=== PATIENT | female | born 1965 | race Caucasian/White ===

== ENCOUNTER → 2017-11-03 | Outpatient (CLI) | payer BC ==
[~2017-11-03] MED LIST: ASPI81CH PO; Augmentin 875-1 EACH PO; BENTYL20 MG PO; ESOM20 PO; LEVSOD50 PO; LISHYD1012 PO; LISHYD2025 PO; LISINOPRIL PO; METF500 PO; METF850 PO; NITR100CA PO; Nexium40 MG PO; Unithroid25 MCG PO; Zofran Odt4 MG SL; [UNRECOGNIZED DRUG - OTHER] PO; [UNRECOGNIZED DRUG - REMARK]
== END | disposition home or self-care (01) ==
LOC: LAB 16:43
DX: N89.8 Other specified noninflammatory disorders of vagina (principal)
CPT/HCPCS: 87070; 87205

== ENCOUNTER → 2018-02-01 | Outpatient (CLI) | payer BC | END | disposition home or self-care (01) | LOC: OLS 17:33 → LAB SHORT 17:33 | DX: N89.8 Other specified noninflammatory disorders of vagina (principal) | CPT/HCPCS: 87070; 87147; 87205 ==

== ENCOUNTER → 2018-04-07 | Outpatient (CLI) | payer BC ==
[2018-04-11 14:10] LABS: HPV 16 Negative (Negative); HPV 18 Negative (Negative); HPV OTHER HR TYPES Negative (Negative)
== END | disposition home or self-care (01) ==
LOC: LAB 13:04 → LAB SHORT 13:04
PROVIDERS: Nurse Practitioner Women's Health
DX: Z12.72 Encounter for screening for malignant neoplasm of vagina (principal); Z91.89 Other specified personal risk factors, not elsewhere classified
CPT/HCPCS: 87624; G0123

== ENCOUNTER → 2018-11-06 | Outpatient (CLI) | payer BC | END | disposition home or self-care (01) | LOC: LAB SHORT 19:54 → LAB 19:54 | DX: N89.8 Other specified noninflammatory disorders of vagina (principal) | CPT/HCPCS: 87070; 87205 ==

== ENCOUNTER 2019-01-19 10:02 | Day surgery (SDC) | payer BC ==
[~2019-01-19] VITALS: Ht 162.6 cm; Wt 78.5 kg
== END 2019-01-19 12:21 | disposition home or self-care (01) ==
LOC: ORSCSDS 10:02
PROVIDERS: Internal Medicine Gastroenterology
PROC: 0DB58ZX Excision of Esophagus, Via Natural or Artificial Opening Endoscopic, Diagnostic (ICD-10-PCS; principal; 2019-01-19 11:30)
PROC: 0D757ZZ Dilation of Esophagus, Via Natural or Artificial Opening (ICD-10-PCS; principal; 2019-01-19 11:30)
PROC: 0DB68ZX Excision of Stomach, Via Natural or Artificial Opening Endoscopic, Diagnostic (ICD-10-PCS; principal; 2019-01-19 11:30)
DX: K21.0 Gastro-esophageal reflux disease with esophagitis (principal); R13.10 Dysphagia, unspecified; K22.2 Esophageal obstruction; K44.9 Diaphragmatic hernia without obstruction or gangrene; K29.70 Gastritis, unspecified, without bleeding; I10 Essential (primary) hypertension; E11.9 Type 2 diabetes mellitus without complications; E03.9 Hypothyroidism, unspecified; Z79.899 Other long term (current) drug therapy
CPT/HCPCS: 82947; 88305; 88342; J2704; J7120

== ENCOUNTER → 2019-04-13 | Outpatient (CLI) | payer BC ==
[~2019-04-13] MED LIST changes: +FISH OIL 1,0001 EAC1 PO; +MAGNESIUM OXID500 MG; +MINIVELLE1 EACH TD; +Multiple Vitam1 EACH PO; +ZESTORETIC 20-251 EA PO
[2019-04-17 13:07] LABS: HPV 16 Negative (Negative); HPV 18 Negative (Negative); HPV OTHER HR TYPES Negative (Negative)
== END | disposition home or self-care (01) ==
LOC: LAB SHORT 13:14 → LAB 13:14
PROVIDERS: Nurse Practitioner Women's Health
DX: Z12.72 Encounter for screening for malignant neoplasm of vagina (principal); Z91.89 Other specified personal risk factors, not elsewhere classified
CPT/HCPCS: 87624; G0123

== ENCOUNTER 2019-06-08 07:42 | Day surgery (SDC) | payer BC ==
[~2019-06-08] VITALS: Ht 162.6 cm; Wt 77.2 kg
== END 2019-06-08 09:55 | disposition home or self-care (01) ==
LOC: ORSCSDS 07:42
PROVIDERS: Internal Medicine Gastroenterology
PROC: 0DB58ZX Excision of Esophagus, Via Natural or Artificial Opening Endoscopic, Diagnostic (ICD-10-PCS; principal; 2019-06-08 09:00)
PROC: 0D758ZZ Dilation of Esophagus, Via Natural or Artificial Opening Endoscopic (ICD-10-PCS; principal; 2019-06-08 09:00)
DX: K20.0 Eosinophilic esophagitis (principal); K22.2 Esophageal obstruction; I10 Essential (primary) hypertension; E11.9 Type 2 diabetes mellitus without complications; Z79.84 Long term (current) use of oral hypoglycemic drugs; Z79.899 Other long term (current) drug therapy
CPT/HCPCS: 82947; 88305; J2405; J2704; J7120

== ENCOUNTER 2020-06-05 08:32 | Day surgery (SDC) | payer BC ==
[~2020-06-05 08:32] MED LIST changes: +Flovent 220 Ora12 GM INH
--- NOTE | 2020-06-05 09:17 | NUR ---
06/05/20 0917 Julee Salmeron FIRST ATTEMPT RIGHT HAND INFILTRATED SECOND ATTEMPT R AC SUCCESSFUL BY RN
--- NOTE | 2020-06-05 10:48 | NUR ---
06/05/20 1048 Helen Mullins DURING PROCEDURE, PT O2 SATS DROPPED TO 73%, O2 INCREASED TO 5L/MIN VIA NC. JAW THRUST PERFORMED, SATS BACK UP TO MID 90s. DR. HERNANDEZ. POST PROCEDURE, PT COUGHING, ORALLY SUCTIONED FOR SMALL CLEAR SECRETIONS. SATS ON ROOM AIR 98%.
== END 2020-06-05 10:45 | disposition home or self-care (01) ==
LOC: ORSCSDS 08:32
PROVIDERS: Internal Medicine Gastroenterology
PROC: 0D758ZZ Dilation of Esophagus, Via Natural or Artificial Opening Endoscopic (ICD-10-PCS; principal; 2020-06-05 09:45)
PROC: 0DB58ZX Excision of Esophagus, Via Natural or Artificial Opening Endoscopic, Diagnostic (ICD-10-PCS; principal; 2020-06-05 09:45)
DX: Z87.19 Personal history of other diseases of the digestive system (principal); E11.9 Type 2 diabetes mellitus without complications; I10 Essential (primary) hypertension; Z79.84 Long term (current) use of oral hypoglycemic drugs; Z79.899 Other long term (current) drug therapy
CPT/HCPCS: 82947; 88305; J2704; J7120

== ENCOUNTER 2021-10-22 06:52 | Day surgery (SDC) | payer BC ==
[~2021-10-22] VITALS: Ht 162.6 cm; Wt 91.0 kg
== END 2021-10-22 08:59 | disposition home or self-care (01) ==
LOC: ORSCSDS 06:52
PROVIDERS: Internal Medicine Gastroenterology
PROC: 0DB58ZX Excision of Esophagus, Via Natural or Artificial Opening Endoscopic, Diagnostic (ICD-10-PCS; principal; 2021-10-22 08:00)
PROC: 0D758ZZ Dilation of Esophagus, Via Natural or Artificial Opening Endoscopic (ICD-10-PCS; principal; 2021-10-22 08:00)
DX: K20.0 Eosinophilic esophagitis (principal); Z80.0 Family history of malignant neoplasm of digestive organs; K22.2 Esophageal obstruction; K44.9 Diaphragmatic hernia without obstruction or gangrene; I10 Essential (primary) hypertension; E11.9 Type 2 diabetes mellitus without complications; E03.9 Hypothyroidism, unspecified; Z79.899 Other long term (current) drug therapy; Z79.84 Long term (current) use of oral hypoglycemic drugs
CPT/HCPCS: 82947; 88305; C1726; J2704; J7120

== ENCOUNTER → 2022-07-26 | Outpatient (CLI) | payer BC | END | disposition home or self-care (01) | LOC: LAB SHORT 18:52 → LAB 18:52 | DX: N39.0 Urinary tract infection, site not specified (principal) | CPT/HCPCS: 87086 ==

== ENCOUNTER 2022-10-22 08:17 | Day surgery (SDC) | payer BC ==
[~2022-10-22] VITALS: Ht 162.6 cm; Wt 77.3 kg
[2022-10-22] MEDS ORDERED: OZEMPIC0.25 MG/0. (08:42)
[2022-10-22] MEDS ORDERED: ATOR10 (08:42)
== END 2022-10-22 11:17 | disposition home or self-care (01) ==
LOC: ORSCSDS 08:17
PROVIDERS: Internal Medicine Gastroenterology
PROC: 0D758ZZ Dilation of Esophagus, Via Natural or Artificial Opening Endoscopic (ICD-10-PCS; principal; 2022-10-22 09:30)
PROC: 0DB58ZX Excision of Esophagus, Via Natural or Artificial Opening Endoscopic, Diagnostic (ICD-10-PCS; principal; 2022-10-22 09:30)
DX: Z12.11 Encounter for screening for malignant neoplasm of colon (principal); Z86.010 Personal history of colon polyps; K21.00 Gastro-esophageal reflux disease with esophagitis, without bleeding; Z80.0 Family history of malignant neoplasm of digestive organs; K22.2 Esophageal obstruction; K64.4 Residual hemorrhoidal skin tags; Z79.899 Other long term (current) drug therapy; Z79.84 Long term (current) use of oral hypoglycemic drugs
CPT/HCPCS: 43249; 43239; G0105; 82947; 88305; C1726; J2704; J7120

== ENCOUNTER 2022-11-21 08:38 | Emergency (ER) | payer BC ==
[~2022-11-21] VITALS: Ht 162.6 cm; Wt 77.1 kg
[~2022-11-21 08:38] MED LIST changes: +ATOR10; +OZEMPIC0.25 MG/0.
[2022-11-21 09:26] LABS: BASOPHILS ABSOLUTE AUTO 0.03 K/mm3 (0.00-0.23); BASOPHILS PERCENT AUTO 0 % (0-2); EOSINOPHILS ABSOLUTE AUTO 0.12 K/mm3 (0.00-0.68); EOSINOPHILS PERCENT AUTO 2 % (0-6); Hematocrit 38.6 % (33.0-51.0); Hemoglobin 13.4 g/dL (11.5-16.0); IMMATURE GRAN ABSOLUTE AUTO 0.02 K/mm3 (0.00-0.10); IMMATURE GRAN PERCENT AUTO 0 % (0-1); LYMPHOCYTES ABSOLUTE AUTO 3.06 K/mm3 (0.84-5.20); LYMPHOCYTES PERCENT AUTO 45 % (21-46); MONOCYTES ABSOLUTE AUTO 0.28 K/mm3 (0.16-1.47); MONOCYTES PERCENT AUTO 4 % (4-13); Mean Corpuscular HGB 28.9 pg (26.0-34.0); Mean Corpuscular HGB Conc 34.7 g/dL (31.5-36.5); Mean Corpuscular Volume 83 fL (80-100); NEUTROPHILS ABSOLUTE AUTO 3.37 K/mm3 (1.96-9.15); NEUTROPHILS PERCENT AUTO 49 % (41-73); Platelet Count 366 K/mm3 (150-400); RDW Coefficient Variation 13.5 % (11.7-14.2); RDW Standard Deviation 40.7 fL (35.1-46.3); Red Blood Cell Count 4.63 M/mm3 (3.80-5.20); White Blood Cell Count 6.88 K/mm3 (4.00-11.30)
[2022-11-21 09:40] LABS: Source, Urine Clean Catch
[2022-11-21 09:44] LABS: Appearance, Urine Clear (Clear); Bilirubin, Urine Neg (Neg); Blood, Urine Neg (Neg); Glucose Qualitative, Urine Neg (Neg); Ketones, Urine Neg (Neg); Leukocyte Esterase, Urine 1+ (Neg); Nitrite, Urine Neg (Neg); Protein, Urine Neg (Neg); Specific Gravity, Urine 1.015 (1.003-1.022); Urobilinogen, Urine NORM (Normal)
[2022-11-21 09:48] LABS: Alanine Aminotransfer (ALT/SGP 40 U/L (12-78); Albumin, Blood 3.5 g/dL (3.4-5.0); Albumin/Globulin Ratio 0.9 (0.8-1.8); Alk Phos 51 U/L (50-136); Anion Gap 2 mmol/L (6-16); Aspartate Aminotrans (AST/SGOT 32 U/L (12-37); Bilirubin, Direct <0.1 mg/dL (0.0-0.3); Bilirubin, Indirect Unable to Calculate mg/dL (0.1-0.7); Bilirubin, Total 0.5 mg/dL (0.1-1.0); Blood Urea Nitrogen 11 mg/dL (8-24); CO2, Blood 30 mmol/L (21-32); Calcium, Blood 8.7 mg/dL (8.5-10.1); Chloride, Blood 105 mmol/L (98-108); Creatinine, Blood 0.65 mg/dL (0.40-1.00); Globulin, Blood 3.9 g/dL (2.2-4.0); Glomerular Filtration Rate 103 (60-); Glucose, Blood 117 mg/dL (70-99); Sodium, Blood 137 mmol/L (136-145); Total Protein, Blood 7.4 g/dL (6.4-8.2)
[2022-11-21 09:52] LABS: Color, Urine Pale Yellow (P-Yellow)
[2022-11-21 10:35] LABS: Bacteria Mod /hpf; Squamous Epithelial Cells Rare /hpf (Few)
[2022-11-21 10:36] LABS: Red Blood Cells, Urine Not Seen /hpf (0-2); Transitional Epithelial Cells Rare /hpf (0-Rare)
[2022-11-21] MEDS ORDERED: CEPH500 PO (10:51)
[2022-11-21] MEDS ORDERED: ONDA4ODT MM (10:51)
== END 2022-11-21 11:12 | disposition home or self-care (01) ==
LOC: ER 08:38
PROVIDERS: Student in an Organized Health Care Education/Training Program
DX: R10.13 Epigastric pain (principal); R11.2 Nausea with vomiting, unspecified; R82.90 Unspecified abnormal findings in urine; I10 Essential (primary) hypertension; E03.9 Hypothyroidism, unspecified; E66.9 Obesity, unspecified; Z68.29 Body mass index [BMI] 29.0-29.9, adult; Z88.2 Allergy status to sulfonamides; Z91.040 Latex allergy status; Z88.8 Allergy status to other drugs, medicaments and biological substances; Z79.899 Other long term (current) drug therapy; Z79.84 Long term (current) use of oral hypoglycemic drugs
CPT/HCPCS: 36415; 80048; 80076; 81001; 83690; 85025; 87086; A9270

== ENCOUNTER 2024-04-20 12:46 | Day surgery (SDC) | payer BC ==
[~2024-04-20] VITALS: Ht 162.6 cm; Wt 80.3 kg
[~2024-04-20 12:46] MED LIST changes: +CEPH500 PO; +ONDA4ODT MM
[2024-04-20] MEDS ORDERED: VITAMIN D5000 UNIT (13:04)
[2024-04-20] MEDS ORDERED: ePHEDrine Sulfate 50 MG/ML 1ML Injection ONE (13:44)
[2024-04-20] MEDS ORDERED: Atropine Sulfate 0.1 MG/ML 10ML SYR ONE (13:44)
[2024-04-20] MEDS ORDERED: Lactated Ringer's 1,000 ML IV ONE ×2 (13:44→14:14)
[2024-04-20] MEDS ORDERED: propofoL 50 ML IV ONE (13:44)
[2024-04-20] MEDS ORDERED: Ondansetron HCl 2 MG / ML 2ML Vial ONE (13:44)
[2024-04-20] MEDS ORDERED: Glycopyrrolate 0.2 MG/ML 1MLVIAL ONE (13:44)
[2024-04-20] MEDS ORDERED: Lidocaine 2% 5 ML SDV ONE (13:51)
[2024-04-20] MEDS ORDERED: Lidocaine HCl/Pf 1% 5 ML VIAL ONE (13:51)
--- NOTE | 2024-04-20 16:41 | NUR ---
04/20/24 4411 Juliana Bello WHEN ASKED PT. IF SHE HAD A SORE THROAT PT. STATED "A LITTLE BIT. TICKLE IN THE BACK OF THROAT BUT GETTING BETTER."
[2024-04-20 16:43] VITALS: BP 127/74
== END 2024-04-20 16:05 | disposition home or self-care (01) ==
LOC: ORSCSDS 12:46
PROVIDERS: Internal Medicine Gastroenterology
PROC: 0DB68ZX Excision of Stomach, Via Natural or Artificial Opening Endoscopic, Diagnostic (ICD-10-PCS; principal; 2024-04-20 14:00)
PROC: 0D758ZZ Dilation of Esophagus, Via Natural or Artificial Opening Endoscopic (ICD-10-PCS; principal; 2024-04-20 14:00)
PROC: 0DB58ZX Excision of Esophagus, Via Natural or Artificial Opening Endoscopic, Diagnostic (ICD-10-PCS; principal; 2024-04-20 14:00)
DX: K20.0 Eosinophilic esophagitis (principal); K31.7 Polyp of stomach and duodenum; K21.9 Gastro-esophageal reflux disease without esophagitis; Z80.0 Family history of malignant neoplasm of digestive organs; Z79.84 Long term (current) use of oral hypoglycemic drugs; Z79.899 Other long term (current) drug therapy
CPT/HCPCS: 82947; 88305; J0461; J2001; J2405; J2704; J7120

== ENCOUNTER 2024-09-14 09:00 | Day surgery (SDC) | payer BC ==
[~2024-09-14] VITALS: Ht 162.6 cm; Wt 81.7 kg
[~2024-09-14 09:00] MED LIST changes: +Lactated Ringer's 1,000 ML IV ONE; +VITAMIN D5000 UNIT; +propofoL 50 ML IV ONE
[2024-09-14] MEDS ORDERED: Lactated Ringer's 1,000 ML IV ONE (09:56)
[2024-09-14] MEDS ORDERED: Glycopyrrolate 0.2 MG/ML 1MLVIAL ONE (10:43)
[2024-09-14 11:14] VITALS: BP 121/73
== END 2024-09-14 11:17 | disposition home or self-care (01) ==
LOC: ORSCSDS 09:00
PROVIDERS: Internal Medicine Gastroenterology
PROC: 0DJ08ZZ Inspection of Upper Intestinal Tract, Via Natural or Artificial Opening Endoscopic (ICD-10-PCS; principal; 2024-09-14 10:30)
DX: K20.0 Eosinophilic esophagitis (principal); Z80.0 Family history of malignant neoplasm of digestive organs; K44.9 Diaphragmatic hernia without obstruction or gangrene; K22.2 Esophageal obstruction; E11.9 Type 2 diabetes mellitus without complications; Z79.85 Long-term (current) use of injectable non-insulin antidiabetic drugs; Z79.84 Long term (current) use of oral hypoglycemic drugs; Z79.899 Other long term (current) drug therapy
CPT/HCPCS: 82947; 88305; J2704; J7120